=== PATIENT | female | born 1975 | race Caucasian/White ===

== ENCOUNTER 2019-09-30 09:38 | Emergency (ER) | payer BC ==
[~2019-09-30] VITALS: Ht 162.6 cm; Wt 86.4 kg
[2019-09-30 09:47] VITALS: BP 140/91; PULSE 103; TEMP 98.8
[2019-09-30 10:49] LABS: BASO # 0.1 (0.0-0.2); BASO % 0.6 % (0.0-2.0); EOS # 0.2 (0.0-0.7); EOS % 2.6 % (0-4.0); GRAN % 68.9 % (42.2-75.2); LYMPH # 1.8 (1.2-3.4); LYMPH % 21.2 % (20.0-51.0); MEAN CELL VOLUME 80 fl (80.0-100.0); MEAN CORPUSCULAR HEMOGLOBIN 24 pg (27.0-31.0); MEAN CORPUSCULAR HGB CONC 30 g/dl (33.0-37.0); MEAN PLATELET VOLUME 10.5 fl (7.4-10.4); MONO # 0.6 (0.1-0.6); MONO % 6.4 % (1.7-9.3); PLATELET COUNT 271 K/mm3 (130-400); RED BLOOD COUNT 4.14 M/mm3 (4.10-5.30); REDCELL DISTRIBUTION WIDTH-CV 15.2 % (11.5-14.5)
[2019-09-30 10:50] LABS: HEMATOCRIT 32.9 % (37.0-47.0)
[2019-09-30 11:07] LABS: ALANINE AMINOTRANSFERASE 14 U/L (9-52); ALBUMIN 4.4 gm/dL (3.5-5.0); ALKALINE PHOSPHATASE 110 U/L (50-136); ANION GAP 10 mmol/L (7-16); AST,SGOT 20 U/L (15-37); BILIRUBIN,TOTAL 0.3 mg/dL (0.0-1.0); BLOOD UREA NITROGEN 11 mg/dL (7-17); CALCIUM 8.5 mg/dL (8.4-10.2); CARBON DIOXIDE 25 mmol/L (22-30); CHLORIDE 105 mmol/L (98-107); CREATININE, serum 0.49 (0.52-1.25); GLUCOSE 90 mg/dL (74-106); POTASSIUM 3.4 mmol/L (3.4-5.0); SODIUM 141 mmol/L (137-145); TOTAL PROTEIN 7.5 gm/dL (6.4-8.2)
[2019-09-30 11:19] LABS: TROPONIN-I < 0.012 ng/mL (0.000-0.035)
== END 2019-09-30 16:00 | disposition home or self-care (01) ==
LOC: COL.ER 09:38
PROVIDERS: Emergency Medicine
DX: H53.2 Diplopia (principal); F41.9 Anxiety disorder, unspecified
CPT/HCPCS: A9585; J1200; J2765

== ENCOUNTER 2021-01-02 09:11 | Emergency (ER) | payer OTHER ==
[~2021-01-02] VITALS: Ht 162.6 cm; Wt 70.5 kg
[2021-01-02 09:30] VITALS: TEMP 98.3
[2021-01-02 09:59] LABS: ALANINE AMINOTRANSFERASE 20 U/L (4-34); ALBUMIN 4.1 gm/dL (3.5-5.0); ALKALINE PHOSPHATASE 86 U/L (50-136); ANION GAP 12 mmol/L (7-16); AST,SGOT 31 U/L (15-37); BILIRUBIN,TOTAL 0.3 mg/dL (0.0-1.0); BLOOD UREA NITROGEN 15 mg/dL (7-17); CALCIUM 8.4 mg/dL (8.4-10.2); CARBON DIOXIDE 17 mmol/L (22-30); CHLORIDE 106 mmol/L (98-107); GLUCOSE 374 mg/dL (74-106); SODIUM 135 mmol/L (137-145); TOTAL PROTEIN 7.1 gm/dL (6.4-8.2)
[2021-01-02 10:03] LABS: ACETAMINOPHEN < 10 ug/mL (10-30); ALCOHOL(ethanol),MEDICAL < 10 mg/dL; SALICYLATE < 1.0 mg/dL
[2021-01-02 10:29] LABS: TSH w REFLEX 0.329 uIU/mL (0.465-4.680)
[2021-01-02 11:23] LABS: BASO # 0.1 (0.0-0.2); BASO % 0.7 % (0.0-2.0); EOS # 0.6 (0.0-0.7); EOS % 4.7 % (0-4.0); GRAN # 9.3 (1.4-6.5); GRAN % 72.2 % (42.2-75.2); HEMATOCRIT 40.1 % (37.0-47.0); HEMOGLOBIN 12.8 g/dl (12.5-16.0); LYMPH # 1.6 (1.2-3.4); LYMPH % 12.6 % (20.0-51.0); MEAN CELL VOLUME 84 fl (80.0-100.0); MEAN CORPUSCULAR HEMOGLOBIN 27 pg (27.0-31.0); MEAN CORPUSCULAR HGB CONC 32 g/dl (33.0-37.0); MEAN PLATELET VOLUME 11.7 fl (7.4-10.4); MONO # 1.1 (0.1-0.6); MONO % 8.9 % (1.7-9.3); PLATELET COUNT 304 K/mm3 (130-400); RED BLOOD COUNT 4.77 M/mm3 (4.10-5.30); REDCELL DISTRIBUTION WIDTH-CV 18.9 % (11.5-14.5)
[2021-01-02 11:24] LABS: COLLECTION METHOD CLEAN CATCH
[2021-01-02] MEDS ORDERED: ZOLOFT 100MG100 MG PO (11:24)
[2021-01-02] MEDS ORDERED: GLUCOPHAGE500 MG/TAB PO (11:26)
[2021-01-02] MEDS ORDERED: CLARITIN 1010 MG/TAB PO (11:26)
[2021-01-02 11:41] LABS: MUCOUS Present /lpf; PH 5 (5-8); SQUAMOUS EPITHELIAL 0-2 /hpf; URINE APPEARANCE Hazy; URINE BACTERIA None Seen /hpf; URINE BILIRUBIN Negative (NEGATIVE); URINE BLOOD Negative (NEGATIVE); URINE COLOR Amber; URINE GLUCOSE 3+ (NEGATIVE); URINE KETONE Negative (NEGATIVE); URINE LEUKOCYTE ESTERASE Negative (NEGATIVE); URINE NITRATE Negative (NEGATIVE); URINE PROTEIN(semi-quant) 1+ (NEGATIVE); URINE RBC 0-2 /hpf
[2021-01-02 11:46] LABS: TRICYCLIC ANTIDEPRESS URINE POSITIVE
[2021-01-02] MEDS ORDERED: AMITRIPTYLINE H25 M1 PO (17:26)
[2021-01-02] MEDS ORDERED: TOPAMAX 100MG100 M1 PO (17:26)
[2021-01-02] MEDS ORDERED: LINZESS72 MCG PO (17:27)
[2021-01-02] MEDS ORDERED: PROTONIX 40MG T40 MG PO (17:27)
[2021-01-02 20:24] VITALS: BP 130/98; PULSE 75
== END 2021-01-02 20:24 ==
LOC: COL.ER 09:11
PROVIDERS: Family Medicine
DX: T42.8X2A Poisoning by antiparkinsonism drugs and other central muscle-tone depressants, intentional self-harm, initial encounter (principal); R27.0 Ataxia, unspecified; F32.9 Major depressive disorder, single episode, unspecified; R13.10 Dysphagia, unspecified; F41.9 Anxiety disorder, unspecified; Z88.1 Allergy status to other antibiotic agents; Z88.6 Allergy status to analgesic agent